=== PATIENT | female | born 1995 | race Caucasian/White ===

== ENCOUNTER 2023-11-11 06:57 | Inpatient (IN) | payer OTHER ==
[2023-11-11] MEDS ORDERED: Ondansetron 4 MG/2 ML SDV IVPUSH PRN (07:58)
[2023-11-11] MEDS ORDERED: Acetaminophen 325 MG Tab PO PRN ×2 (07:58→17:32)
[2023-11-11] MEDS ORDERED: Nalbuphine 10 MG/1 ML Vial IVPUSH PRN (07:58)
[2023-11-11] MEDS ORDERED: Lidocaine 1% 50 ML MDV INJECT PRN (07:58)
[2023-11-11] MEDS ORDERED: Calcium Carbonate 500 MG Tab.Chew PO PRN (07:58)
[2023-11-11] MEDS ORDERED: Oxytocin/0.9 % Sodium Chloride 30 UNIT/500 ML BAG IV SCH (08:00)
[2023-11-11 08:28] LABS: BASOPHILS PERCENT AUTO 0.3 % (0.0-1.0); EOSINOPHILS ABSOLUTE AUTO 0.1 K/mm3 (0.0-0.4); EOSINOPHILS PERCENT AUTO 0.5 % (0.0-6.0); HEMATOCRIT 35.8 % (37.0-47.0); HEMOGLOBIN 11.9 gm/dl (12.0-16.0); IMMATURE GRAN ABSOLUTE AUTO 0.04 K/mm3 (0.00-0.05); IMMATURE GRAN PERCENT AUTO 0.4 % (0.0-0.4); LYMPHOCYTES ABSOLUTE AUTO 2.6 K/mm3 (1.0-4.8); LYMPHOCYTES PERCENT AUTO 26.9 % (24.0-44.0); MEAN CORPUSCULAR HEMOGLOBIN 28.6 pg (28.0-32.0); MEAN CORPUSCULAR HGB CONC 33.2 g/dl (32.0-36.0); MEAN CORPUSCULAR VOLUME 86.1 fl (83.0-99.0); MEAN PLATELET VOLUME 12.1 fl (9.4-12.3); MONOCYTES ABSOLUTE AUTO 0.9 K/mm3 (0.0-0.8); MONOCYTES PERCENT AUTO 8.9 % (0.0-8.0); NEUTROPHILS ABSOLUTE AUTO 6.1 K/mm3 (1.8-7.7); PLATELET COUNT,PLT 139 K/mm3 (150-400); RED BLOOD CELL COUNT 4.16 M/mm3 (4.10-5.30); WHITE BLOOD CELL COUNT,WBC 9.63 K/mm3 (3.9-11.3)
[2023-11-11] MEDS: Lactated Ringers 1,000 ML IV SCH (08:57)
[2023-11-11] MEDS: Oxytocin/0.9 % Sodium Chloride 30 UNIT/500 ML BAG IV SCH (08:59)
[2023-11-11] MEDS ORDERED: ePHEDrine 50 MG/ML SDV IVPUSH PRN (11:40)
[2023-11-11] MEDS ORDERED: diphenhydrAMINE 50 MG/ML SDV IVPUSH PRN (11:40)
[2023-11-11] MEDS: Bupivacaine/fentaNYL/NS 100 ML Bag EPIDUR PRN (11:50)
[2023-11-11] MEDS ORDERED: Docusate Sodium 100 MG Cap PO PRN (17:32)
[2023-11-11] MEDS: Ibuprofen 600 MG Tab PO SCH (18:16)
[2023-11-11] MEDS: Witch Hazel Medicated Pads 40/Jar TOP PRN (18:18)
[2023-11-11] MEDS: Benzocaine/Menthol 20%-0.5% Spray 78 GM Cannister TOP PRN (18:18)
[2023-11-12] MEDS ORDERED: Non-Formulary Medication 1 Each (Levothyroxine [Synthroid] 50 MCG Tablet) PO SCH (06:00)
[2023-11-12] MEDS: Levothyroxine 75 MCG Tab PO SCH (07:19)
== END 2023-11-13 13:10 | disposition home or self-care (01) | DRG 807 ==
LOC: JD.OB 06:57 → OBSVTOIN 15:05 → JD.OB 15:06
PROVIDERS: ADMIT Obstetrics & Gynecology; ATTEND Obstetrics & Gynecology
PROC: 10E0XZZ Delivery of Products of Conception, External Approach (ICD-10-PCS; principal; 2023-11-11)
PROC: 0KQM0ZZ Repair Perineum Muscle, Open Approach (ICD-10-PCS; 2023-11-11)
PROC: 10907ZC Drainage of Amniotic Fluid, Therapeutic from Products of Conception, Via Natural or Artificial Opening (ICD-10-PCS; 2023-11-11)
PROC: 3E033VJ Introduction of Other Hormone into Peripheral Vein, Percutaneous Approach (ICD-10-PCS; 2023-11-11)
PROC: 3E0R3BZ Introduction of Anesthetic Agent into Spinal Canal, Percutaneous Approach (ICD-10-PCS; 2023-11-11)
PROC: 00HU33Z Insertion of Infusion Device into Spinal Canal, Percutaneous Approach (ICD-10-PCS; 2023-11-11)
DX: O99.284 Endocrine, nutritional and metabolic diseases complicating childbirth (principal); Z37.0 Single live birth; E03.9 Hypothyroidism, unspecified; O10.92 Unspecified pre-existing hypertension complicating childbirth; Z3A.39 39 weeks gestation of pregnancy; O70.1 Second degree perineal laceration during delivery; O36.5930 Maternal care for other known or suspected poor fetal growth, third trimester, not applicable or unspecified
CPT/HCPCS: 36415; 51702; 59025; 59409; 85025; 86592; 86850; 86900; 86901; A9270-GY; J3490; J7120; J7999

== ENCOUNTER 2024-02-13 12:26 | Inpatient (IN) | payer BC, OTHER ==
[2024-02-13] MEDS ORDERED: Naloxone 0.4 MG/ML SDV IVPUSH PRN ×2 (13:36→16:48)
[2024-02-13 13:54] LABS: BASOPHILS ABSOLUTE AUTO 0.1 K/mm3 (0.0-0.2); BASOPHILS PERCENT AUTO 0.4 % (0.0-1.0); EOSINOPHILS ABSOLUTE AUTO 0.1 K/mm3 (0.0-0.4); EOSINOPHILS PERCENT AUTO 0.5 % (0.0-6.0); HEMATOCRIT 43.1 % (37.0-47.0); IMMATURE GRAN ABSOLUTE AUTO 0.04 K/mm3 (0.00-0.05); IMMATURE GRAN PERCENT AUTO 0.3 % (0.0-0.4); LYMPHOCYTES PERCENT AUTO 14.8 % (24.0-44.0); MEAN CORPUSCULAR HEMOGLOBIN 28.7 pg (28.0-32.0); MEAN CORPUSCULAR HGB CONC 33.2 g/dl (32.0-36.0); MEAN CORPUSCULAR VOLUME 86.4 fl (83.0-99.0); MONOCYTES PERCENT AUTO 7.5 % (0.0-8.0); NEUTROPHILS ABSOLUTE AUTO 10.2 K/mm3 (1.8-7.7); NEUTROPHILS PERCENT AUTO 76.5 % (41.0-71.0); RED BLOOD CELL COUNT 4.99 M/mm3 (4.10-5.30); WHITE BLOOD CELL COUNT,WBC 13.36 K/mm3 (3.9-11.3)
[2024-02-13 13:56] LABS: HEMOGLOBIN 14.3 gm/dl (12.0-16.0); PLATELET COUNT,PLT 248 K/mm3 (150-400)
[2024-02-13 14:14] LABS: A/G RATIO 1.1 (1-2); ANION GAP 15.7 (5-15); BILIRUBIN TOTAL 2.9 mg/dL (0.2-1.0); BUN/CREATININE RATIO 17.5 (14-18); C-REACTIVE PROTEIN 1.28 mg/dL (<0.30); CALCIUM 9.3 mg/dL (8.5-10.1); CREATININE 0.8 mg/dL (0.55-1.02); EST CRCL DRUG DOSING (CG) 82.06 mL/min; POTASSIUM,K 3.7 mEq/L (3.5-5.1); PROTEIN TOTAL,TP 7.8 g/dl (6.4-8.2)
[2024-02-13] MEDS: Sodium Chloride 0.9% 1,000 ML IV ONE (14:31)
[2024-02-13] MEDS: Ondansetron 4 MG/2 ML SDV IVPUSH ONE (14:34)
[2024-02-13] MEDS: HYDROmorphone 0.5 MG/0.5 ML Syringe IVPUSH ONE (14:35)
[2024-02-13] MEDS ORDERED: Ertapenem 1 GM in Sodium Chloride 0.9% 50 ML IV SCH (15:15)
[2024-02-13] MEDS ORDERED: Ertapenem 1 GM Vial IV ONE (15:30)
[2024-02-13 15:50] LABS: APPEARANCE,URINE CLOUDY (Clear); BILIRUBIN,URINE 2+ (Negative); GLUCOSE,URINE NEGATIVE (Negative); KETONES,URINE 3+ (Negative); LEUKOCYTE ESTERASE,URINE NEGATIVE (Negative); NITRITE,URINE NEGATIVE (Negative); OCCULT BLOOD,URINE NEGATIVE (Negative); PH,URINE 5.5 (5.0-8.0); PROTEIN,URINE 1+ (Negative)
[2024-02-13 15:59] LABS: COLOR,URINE YELLOW (Yellow)
[2024-02-13 16:00] LABS: AMORPHOUS SEDIMENT,URINE FEW /hpf (NOT SEEN); BACTERIA,URINE MODERATE /hpf (FEW); MUCUS,URINE MODERATE /hpf (FEW); RBC,URINE 0-5 /hpf (0-5); SQUAMOUS EPITHELIAL CELLS,UR 0-5 /hpf (0-5); WBC,URINE 0-5 /hpf (0-5)
[2024-02-13] MEDS: Ertapenem 1 GM Vial IV SCH (16:04)
[2024-02-13] MEDS: Iopamidol 612 MG/ML 100 ML Bottle IVPUSH ONE (16:38)
[2024-02-13] MEDS: Sodium Chloride 0.9% 10 ML Syringe FLUSH PRN (16:38)
[2024-02-13] MEDS ORDERED: Morphine 2 MG/ML SYRINGE IVPUSH PRN (16:48)
[2024-02-13] MEDS: Lactated Ringers 1,000 ML IV ONE ×2 (16:57→17:29)
[2024-02-13] MEDS: Ketorolac 30 MG/ML SDV IVPUSH SCH (17:53)
[2024-02-13] MEDS ORDERED: Ondansetron 4 MG/2 ML SDV IVPUSH PRN (19:18)
[2024-02-13] MEDS ORDERED: Pantoprazole 40 MG in Sodium Chloride 0.9% 100 ML IV ONE (21:00)
[2024-02-13] MEDS: Heparin Sodium 5,000 Units/ML Vial SUBCUT SCH (21:07)
[2024-02-13] MEDS: Pantoprazole 40 MG Vial IVPUSH ONE (21:07)
[2024-02-13] MEDS: Lactated Ringers 1,000 ML IV SCH (23:46)
[2024-02-14 04:40] LABS: HEMATOCRIT 40.8 % (37.0-47.0); HEMOGLOBIN 13.2 gm/dl (12.0-16.0); MEAN CORPUSCULAR HEMOGLOBIN 28.4 pg (28.0-32.0); MEAN CORPUSCULAR HGB CONC 32.4 g/dl (32.0-36.0); MEAN CORPUSCULAR VOLUME 87.9 fl (83.0-99.0); MEAN PLATELET VOLUME 11.1 fl (9.4-12.3); PLATELET COUNT,PLT 228 K/mm3 (150-400); RED BLOOD CELL COUNT 4.64 M/mm3 (4.10-5.30); WHITE BLOOD CELL COUNT,WBC 9.97 K/mm3 (3.9-11.3)
[2024-02-14 05:11] LABS: ALBUMIN 3.2 g/dl (3.4-5.0); ANION GAP 14.2 (5-15); BILIRUBIN TOTAL 1.1 mg/dL (0.2-1.0); BUN/CREATININE RATIO 21.3 (14-18); CALCIUM 8.6 mg/dL (8.5-10.1); CREATININE 0.8 mg/dL (0.55-1.02); EST CRCL DRUG DOSING (CG) 82.06 mL/min; POTASSIUM,K 4.2 mEq/L (3.5-5.1); PROTEIN TOTAL,TP 6.5 g/dl (6.4-8.2)
[2024-02-14 07:07] LABS: INR 1.03; PROTHROMBIN TIME 10.9 SECONDS (9.7-12.0)
[2024-02-14] MEDS ORDERED: Montelukast 10 MG Tab PO PRN (08:44)
[2024-02-14] MEDS ORDERED: Albuterol 6.7 GM Inhaler INH PRN (09:07)
[2024-02-14] MEDS: 50% Dextrose in Water 50 ML Syringe IVPUSH PRN (19:59)
[2024-02-15] MEDS: Levothyroxine 50 MCG Tab PO SCH (06:05)
[2024-02-15 06:29] LABS: HEMATOCRIT 34.1 % (37.0-47.0); HEMOGLOBIN 11.3 gm/dl (12.0-16.0); MEAN CORPUSCULAR HEMOGLOBIN 28.8 pg (28.0-32.0); MEAN CORPUSCULAR HGB CONC 33.1 g/dl (32.0-36.0); MEAN CORPUSCULAR VOLUME 86.8 fl (83.0-99.0); MEAN PLATELET VOLUME 11.1 fl (9.4-12.3); PLATELET COUNT,PLT 185 K/mm3 (150-400); RED BLOOD CELL COUNT 3.93 M/mm3 (4.10-5.30); WHITE BLOOD CELL COUNT,WBC 8.84 K/mm3 (3.9-11.3)
[2024-02-15 07:03] LABS: A/G RATIO 0.9 (1-2); ALBUMIN 2.9 g/dl (3.4-5.0); ANION GAP 16.9 (5-15); BUN/CREATININE RATIO 28.3 (14-18); CALCIUM 8.3 mg/dL (8.5-10.1); CREATININE 0.6 mg/dL (0.55-1.02); EST CRCL DRUG DOSING (CG) 109.42 mL/min; POTASSIUM,K 3.9 mEq/L (3.5-5.1)
[2024-02-15] MEDS: FLUTICASONE FUROATE 100 MCG INH SCH (08:12)
[2024-02-15] MEDS ORDERED: Sugammadex Sodium 200 MG/2 ML VIAL IV ONE (10:02)
[2024-02-15] MEDS ORDERED: Propofol 200 MG/20 ML SDV ONE (10:02)
[2024-02-15] MEDS ORDERED: Ketorolac 30 MG/ML SDV ONE (10:02)
[2024-02-15] MEDS ORDERED: Ondansetron 4 MG/2 ML SDV ONE (10:02)
[2024-02-15] MEDS ORDERED: Lidocaine 2% 5 ML SDV ONE (10:02)
[2024-02-15] MEDS ORDERED: Dexamethasone 4 MG/ML 5 ML MDV ONE (10:02)
[2024-02-15] MEDS ORDERED: fentaNYL 100 MCG/2 ML SDV ONE (10:03)
[2024-02-15] MEDS ORDERED: Ropivacaine 0.5% 5 MG/ML 30 ML SDV ONE ×2 (10:08→10:15)
[2024-02-15] MEDS ORDERED: EPINEPHrine 1 MG/ML SDV ONE ×2 (10:08→11:30)
[2024-02-15] MEDS ORDERED: Sodium Chloride 0.9% 10 ML Syringe FLUSH PRN (10:57)
[2024-02-15] MEDS ORDERED: Lactated Ringers 1,000 ML IV SCH (11:00)
[2024-02-15] MEDS: cefOXitin 1 GM Vial IVPUSH ONE (11:12)
[2024-02-15] MEDS ORDERED: Bupivacaine 0.5% 30 ML SDV ONE ×2 (11:21→11:30)
[2024-02-15] MEDS ORDERED: Sodium Chloride 0.9% 50 ML SDV ONE (11:22)
[2024-02-15] MEDS ORDERED: Lidocaine 1% with EPINEPHrine 1:100,000 20 ML MDV ONE (11:30)
[2024-02-15] MEDS ORDERED: Bupivacaine 0.25% 10 ML SDV ONE (11:30)
[2024-02-15] MEDS ORDERED: Lidocaine 1% 30 ML SDV ONE (11:30)
[2024-02-15] MEDS ORDERED: Iopamidol 612 MG/ML 30 ML SDV ONE (11:37)
[2024-02-15] MEDS ORDERED: Rocuronium 50 MG/5 ML Vial ONE ×2 (11:38→12:00)
[2024-02-15] MEDS ORDERED: HYDROmorphone 0.5 MG/0.5 ML Syringe ONE (12:24)
[2024-02-15] MEDS ORDERED: 50% Dextrose in Water 50 ML Syringe ONE (12:34)
[2024-02-15] MEDS: Sodium Chloride 0.9% 10 ML Syringe FLUSH SCH (14:38)
[2024-02-15] MEDS ORDERED: Acetaminophen/Codeine 300-30 MG Tab PO PRN (15:44)
[2024-02-15] MEDS: Lactated Ringers 1,000 ML IV SCH (16:05)
[2024-02-16 04:31] LABS: HEMATOCRIT 32.1 % (37.0-47.0); HEMOGLOBIN 10.7 gm/dl (12.0-16.0); MEAN CORPUSCULAR HEMOGLOBIN 29.3 pg (28.0-32.0); MEAN CORPUSCULAR HGB CONC 33.3 g/dl (32.0-36.0); MEAN CORPUSCULAR VOLUME 87.9 fl (83.0-99.0); MEAN PLATELET VOLUME 10.6 fl (9.4-12.3); PLATELET COUNT,PLT 181 K/mm3 (150-400); RED BLOOD CELL COUNT 3.65 M/mm3 (4.10-5.30); WHITE BLOOD CELL COUNT,WBC 8.72 K/mm3 (3.9-11.3)
[2024-02-18] MEDS ORDERED: Levothyroxine 75 MCG Tab PO SCH (06:00)
== END 2024-02-16 11:30 | disposition home or self-care (01) | DRG 417 ==
LOC: JD.ED 12:26 → JD.MS 15:37 → JD.SDS 15:37
PROVIDERS: ADMIT Surgery; ATTEND Surgery
PROC: BF0CYZZ Plain Radiography of Hepatobiliary System, All using Other Contrast (ICD-10-PCS; 2024-02-15)
PROC: 0FT44ZZ Resection of Gallbladder, Percutaneous Endoscopic Approach (ICD-10-PCS; principal; 2024-02-15 12:00)
DX: K80.20 Calculus of gallbladder without cholecystitis without obstruction (principal); K85.90 Acute pancreatitis without necrosis or infection, unspecified; E03.9 Hypothyroidism, unspecified; J45.909 Unspecified asthma, uncomplicated; H54.7 Unspecified visual loss; I10 Essential (primary) hypertension; K21.9 Gastro-esophageal reflux disease without esophagitis; G25.81 Restless legs syndrome; Z79.51 Long term (current) use of inhaled steroids; Z79.52 Long term (current) use of systemic steroids; Z79.899 Other long term (current) drug therapy; Z98.890 Other specified postprocedural states; Z90.89 Acquired absence of other organs
CPT/HCPCS: 00790; 36415; 64488; 74177; 74177-26; 74300; 74300-26; 76705; 76705-26; 80053; 81001; 82947; 83690; 84703; 85025; 85027; 85610; 86140; 88304; 94640; 96361; 96374; 96375; 99140; 99285-25; A9270-GY; J0171; J0665; J0694; J1100; J1171; J1335; J1644; J1885; J2405; J2470; J2704; J2795; J3010; J3490; J7030; J7120; Q9967